=== PATIENT | female | born 1970 | race Caucasian/White ===

== ENCOUNTER 2023-02-23 19:25 | Emergency (ER) | payer MEDICARE, OTHER ==
[~2023-02-23] VITALS: Ht 160 cm; Wt 60.8 kg
[~2023-02-23 19:25] MED LIST: ACET-73 PO; OMEP20CA15 PO
--- NOTE | 2023-02-23 19:45 | NUR ---
Dr. Saha evaluated patient at bedside. MSE in progress.
[2023-02-23] MEDS ORDERED: HYDROCODONE/APAP 10-325 MG TABLET ONE (20:29)
[2023-02-23] MEDS ORDERED: HYDROCODONE/APAP 10-325 MG TABLET PO ONE (20:30)
[2023-02-23] MEDS ORDERED: HYDR-3980 PO (20:59)
[2023-02-23] MEDS ORDERED: CLIN300C12 PO (20:59)
--- NOTE | 2023-02-23 21:21 | NUR ---
Patient discharged to home in stable condition. Written and verbal after care instructions given. Patient verbalizes understanding of instructions. Stressed follow up or return to ER for worsening s/s. Instructed patient not to drive.
--- NOTE | 2023-02-23 21:30 | NUR ---
[facility] 10-325mg 1 tab PO reassessment due at 21:31, unable to reassess due to patient d/c. Prior to discharge, patient stated pain relief 2/10 pain.
[2023-02-23 23:20] VITALS: BP 115/75
== END 2023-02-23 21:21 | disposition home or self-care (01) ==
LOC: ER 19:27
DX: K04.7 Periapical abscess without sinus (principal); R68.84 Jaw pain; K21.9 Gastro-esophageal reflux disease without esophagitis; Z88.0 Allergy status to penicillin; Z88.1 Allergy status to other antibiotic agents; Z88.8 Allergy status to other drugs, medicaments and biological substances; Z91.018 Allergy to other foods; Z79.899 Other long term (current) drug therapy
CPT/HCPCS: A4663

== ENCOUNTER 2023-03-16 12:55 | Emergency (ER) | payer MEDICARE, OTHER ==
[~2023-03-16] VITALS: Ht 160 cm; Wt 60.8 kg
[~2023-03-16 12:55] MED LIST changes: +CLIN300C12 PO; +HYDR-3980 PO
--- NOTE | 2023-03-16 13:01 | NUR ---
Patient is AOx4 and reported, "There is black mold and mice in my room." Patient came to ER c/o generalized aches, myalgias, headaches, subjective fever, chills, nausea, vomiting and diarrhea for about a week. Patient denies chest pains and no shortness of breath.
--- NOTE | 2023-03-16 13:12 | NUR ---
[email or web address], medical screening exam in progress
[2023-03-16] MEDS ORDERED: PROCHLORPERAZINE EDISYLATE 10 MG/2 ML VIAL IV ONE (13:15)
[2023-03-16] MEDS ORDERED: ACETAMINOPHEN ES 500 MG TABLET PO ONE (13:15)
[2023-03-16] MEDS ORDERED: KETOROLAC TROMETHAMINE 15 MG INJ IVP ONE (13:15)
[2023-03-16] MEDS ORDERED: IV NORMAL SALINE 1000 ML BAG IV ONE (13:15)
[2023-03-16] MEDS ORDERED: PROCHLORPERAZINE EDISYLATE 10 MG/2 ML VIAL ONE (13:24)
[2023-03-16] MEDS ORDERED: ACETAMINOPHEN ES 500 MG TABLET ONE (13:24)
[2023-03-16] MEDS ORDERED: KETOROLAC TROMETHAMINE 15 MG INJ ONE (13:24)
[2023-03-16 13:40] LABS: HEMATOCRIT 46.5 % (31.2-41.9); MEAN CORPUSCULAR VOLUME 84.2 fL (75.5-95.3); PLATELET COUNT (AUTO) 238 K/uL (179-408)
[2023-03-16 13:47] LABS: CREATININE 0.9 mg/dL (0.6-1.3); POTASSIUM 3.8 mmol/L (3.5-5.1)
--- NOTE | 2023-03-16 14:26 | NUR ---
IV removed. Catheter intact and site benign. Pressure and 4x4 gauze applied to site. No bleeding noted. Patient discharged to home by Dr Lucas in stable condition with brisk steady gait. Written and verbal after care instructions given to patient and adult son. Patient and family verbalized understanding and compliance of instructions. Stressed follow up with primary doctor or return to ER for worsening s/s.
[2023-03-16 14:32] VITALS: BP 122/81
== END 2023-03-16 14:33 | disposition home or self-care (01) ==
LOC: ER 13:06
DX: R51.9 Headache, unspecified (principal); R11.2 Nausea with vomiting, unspecified; R19.7 Diarrhea, unspecified; M79.10 Myalgia, unspecified site; B34.9 Viral infection, unspecified; R07.89 Other chest pain; K21.9 Gastro-esophageal reflux disease without esophagitis; Z88.0 Allergy status to penicillin; Z88.1 Allergy status to other antibiotic agents; Z88.8 Allergy status to other drugs, medicaments and biological substances; Z91.018 Allergy to other foods; Z79.2 Long term (current) use of antibiotics; Z79.899 Other long term (current) drug therapy; Z20.822 Contact with and (suspected) exposure to COVID-19
CPT/HCPCS: 99284; 96374; 71045; 96361; 96375; 87426; 87804 ×2; 80048; 85025; 36415; J1885; J0780; J7040; A4663; A9150

== ENCOUNTER 2023-07-22 12:54 | Emergency (ER) | payer MEDICARE, OTHER ==
[~2023-07-22] VITALS: Ht 157.5 cm; Wt 60.8 kg
[~2023-07-22 12:54] MED LIST changes: +CYCL5TAB PO; +NAPR-1009 PO
[2023-07-22 13:10] VITALS: O2SAT 97
[2023-07-22] MEDS ORDERED: IBUPROFEN 600 MG TABLET PO ONE (13:30)
[2023-07-22] MEDS ORDERED: predniSONE 20 MG TABLET PO ONE (13:30)
[2023-07-22] MEDS ORDERED: predniSONE 10 MG TABLET ONE (13:35)
[2023-07-22] MEDS ORDERED: IBUPROFEN 600 MG TABLET ONE (13:35)
[2023-07-22] MEDS ORDERED: predniSONE 50 MG TABLET ONE (13:35)
[2023-07-22] MEDS ORDERED: PRED20TA PO (14:15)
[2023-07-22] MEDS ORDERED: LEVO750T46 PO (14:15)
[2023-07-22] MEDS ORDERED: ALBU18HF2 INH (14:15)
[2023-07-22] MEDS ORDERED: BENZ-13 PO (14:15)
[2023-07-22] MEDS ORDERED: IBUP-1955 PO (14:15)
== END 2023-07-22 14:48 | disposition home or self-care (01) ==
LOC: ER 12:54
DX: B34.9 Viral infection, unspecified (principal); R05.9 Cough, unspecified; J02.9 Acute pharyngitis, unspecified; N39.0 Urinary tract infection, site not specified; Z88.0 Allergy status to penicillin; Z88.1 Allergy status to other antibiotic agents; Z88.8 Allergy status to other drugs, medicaments and biological substances; Z91.018 Allergy to other foods; Z79.1 Long term (current) use of non-steroidal anti-inflammatories (NSAID); Z79.2 Long term (current) use of antibiotics; Z79.899 Other long term (current) drug therapy; Z20.822 Contact with and (suspected) exposure to COVID-19
CPT/HCPCS: 99284; 71045; 87426; 87804 ×2; J7512 ×2; A4606; A4663

== ENCOUNTER 2024-07-23 09:58 | Emergency (ER) | payer MEDICARE ==
[~2024-07-23] VITALS: Ht 160 cm; Wt 68.9 kg
[~2024-07-23 09:58] MED LIST changes: +ALBU18HF2 INH; +BENZ-13 PO; +IBUP-1955 PO; +LEVO750T46 PO; +PRED20TA PO
[2024-07-23] MEDS ORDERED: LIDOCAINE 1%-EPI 1:100,000 20 ML VIAL ONE (10:39)
[2024-07-23] MEDS ORDERED: NEOMY/BACITRA/POLYMYXIN B OINT UD PACKET TP ONE ×2 (10:39→10:42)
[2024-07-23] MEDS: NEOMY/BACITRA/POLYMYXIN B OINT UD PACKET TP ONE (10:59)
[2024-07-23] MEDS: LIDOCAINE 1%-EPI 1:100,000 20 ML VIAL IJ ONE (11:00)
[2024-07-23 12:00] VITALS: O2SAT 97
== END 2024-07-23 12:25 | disposition home or self-care (01) ==
LOC: ER 09:58
DX: S01.111A Laceration without foreign body of right eyelid and periocular area, initial encounter (principal); J20.9 Acute bronchitis, unspecified; F32.A Depression, unspecified; R51.9 Headache, unspecified; Z79.52 Long term (current) use of systemic steroids; Z98.890 Other specified postprocedural states; Z79.899 Other long term (current) drug therapy; Z88.0 Allergy status to penicillin; Z88.1 Allergy status to other antibiotic agents; W01.0XXA Fall on same level from slipping, tripping and stumbling without subsequent striking against object, initial encounter
CPT/HCPCS: 99284; 70450; 70486; J3490; A4606; A4663

== ENCOUNTER 2024-07-27 09:11 | Emergency (ER) | payer MEDICARE ==
[~2024-07-27] VITALS: Ht 160 cm; Wt 68.9 kg
[2024-07-27 10:13] VITALS: BP 156/78; O2SAT 99
== END 2024-07-27 10:13 | disposition home or self-care (01) ==
LOC: ER 09:11
DX: S01.111D Laceration without foreign body of right eyelid and periocular area, subsequent encounter (principal); J40 Bronchitis, not specified as acute or chronic; F32.A Depression, unspecified; Z79.52 Long term (current) use of systemic steroids; Z79.899 Other long term (current) drug therapy; Z90.49 Acquired absence of other specified parts of digestive tract; Z88.0 Allergy status to penicillin; Z88.1 Allergy status to other antibiotic agents; X58.XXXD Exposure to other specified factors, subsequent encounter
CPT/HCPCS: A4606; A4663

== ENCOUNTER → 2025-02-08 | Emergency (ER) | payer MEDICARE ==
[~2025-02-08] VITALS: Ht 160 cm; Wt 66.7 kg
[~2025-02-08] MED LIST changes: +KETOROLAC TROMETHAMINE 15 MG INJ ONE; +ONDA4TAB5 PO; +ONDANSETRON 4 MG/2 ML VIAL ONE
[2025-02-08 18:11] LABS: BASOPHILS # (AUTO) 0.1 K/UL (0.0-0.2); BASOPHILS % (AUTO) 0.8 % (0.0-2.0); DIFFERENTIAL COMMENT 1; EOSINOPHILS % (AUTO) 0.5 % (0.0-7.0); HEMATOCRIT 40.1 % (31.2-41.9); HEMOGLOBIN 13.6 g/dL (10.9-14.3); LYMPHOCYTES # (AUTO) 0.6 K/uL (0.8-4.8); LYMPHOCYTES % (AUTO) 6.9 % (20.5-51.5); MEAN CORPUSCULAR HEMOGLOBIN 27.2 uug (24.7-32.8); MEAN CORPUSCULAR HGB CONC 34 g/dL (32.3-35.6); MONOCYTES % (AUTO) 11.3 % (0.0-11.0); NEUTROPHILS # (AUTO) 7.4 K/uL (1.8-8.9); NEUTROPHILS % (AUTO) 80.5 % (38.5-71.5); PLATELET COUNT (AUTO) 236 K/uL (179-408); RED BLOOD CELL COUNT(AUTO) 5.01 MIL/uL (3.63-4.92); RED CELL DISTRIBUTION WIDTH 15.2 % (12.3-17.7); WHITE BLOOD COUNT (AUTO) 9.2 K/uL (3.8-11.8)
[2025-02-08] MEDS: IV NORMAL SALINE 1000 ML BAG IV ONE (18:11)
[2025-02-08] MEDS: ONDANSETRON 4 MG/2 ML VIAL IV ONE (18:11)
[2025-02-08 18:18] LABS: CALCIUM 9.4 mg/dL (8.5-10.1); POTASSIUM 4.2 mmol/L (3.5-5.1)
[2025-02-08 18:23] LABS: ALBUMIN 3.6 g/dL (3.4-5.0); BILIRUBIN,DIRECT 0.2 mg/dL (0.0-0.2); BILIRUBIN,TOTAL 0.8 mg/dL (0.2-1.0)
[2025-02-08] MEDS: KETOROLAC TROMETHAMINE 15 MG INJ IVP ONE (18:45)
[2025-02-08 19:57] VITALS: BP 140/80; TEMP 98.1; O2SAT 97
== END | disposition home or self-care (01) ==
LOC: ER 17:51
DX: K52.9 Noninfective gastroenteritis and colitis, unspecified (principal); J06.9 Acute upper respiratory infection, unspecified; F19.10 Other psychoactive substance abuse, uncomplicated; F41.9 Anxiety disorder, unspecified; Z79.52 Long term (current) use of systemic steroids; Z79.899 Other long term (current) drug therapy; Z88.0 Allergy status to penicillin; Z88.1 Allergy status to other antibiotic agents; Z90.49 Acquired absence of other specified parts of digestive tract; Z20.822 Contact with and (suspected) exposure to COVID-19; F32.A Depression, unspecified; Z86.69 Personal history of other diseases of the nervous system and sense organs; Z87.09 Personal history of other diseases of the respiratory system; Z87.19 Personal history of other diseases of the digestive system
CPT/HCPCS: 99284; 96374; 96361; 96375; 87426; 80076; 80048; 83690; 85025; 36415; J1885; J2405; J7040; A4606; A4663

== ENCOUNTER 2025-05-27 14:02 | Emergency (ER) | payer MEDICARE ==
[~2025-05-27] VITALS: Ht 152.4 cm; Wt 68.0 kg
[~2025-05-27 14:02] MED LIST changes: -ACET-73 PO; -ALBU18HF2 INH; -BENZ-13 PO; +BETH10TA2 PO; -CLIN300C12 PO; -CYCL5TAB PO; -HYDR-3980 PO; -IBUP-1955 PO; +IBUP-2314 PO; -KETOROLAC TROMETHAMINE 15 MG INJ ONE; -LEVO750T46 PO; -NAPR-1009 PO; +NITR100C6 PO; -OMEP20CA15 PO; -ONDA4TAB5 PO; -ONDANSETRON 4 MG/2 ML VIAL ONE; -PRED20TA PO; +SERT-440 PO
[2025-05-27 14:30] VITALS: BP 156/90
[2025-05-27 16:36] LABS: PLATELET COUNT (AUTO) 234 K/uL (179-408); RED BLOOD CELL COUNT(AUTO) 5.31 MIL/uL (3.63-4.92); RED CELL DISTRIBUTION WIDTH 16.0 % (12.3-17.7); WHITE BLOOD COUNT (AUTO) 12.5 K/uL (3.8-11.8)
[2025-05-27 16:45] LABS: CREATININE 0.8 mg/dL (0.6-1.3); SODIUM SERUM 148 mmol/L (136-145); UREA NITROGEN, BLOOD 13 mg/dL (7-18)
[2025-05-27 16:46] LABS: *BILIRUBIN,URIN 1+ (NEGATIVE); *BLOOD, URINE TRACE (NEGATIVE); *CLARITY,URINE CLEAR (CLEAR); *COLOR,URINE YELLOW (YELLOW); *KETONES,URINE TRACE (NEGATIVE); *PROTEIN,URINE NEGATIVE (NEGATIVE); *UROBILINOGEN,URINE 0.2 E.U./dl (NORMAL); LEUKOCYTE ESTERASE ,URINE NEGATIVE (NEGATIVE); NITRITE, URINE NEGATIVE (NEGATIVE); UGLUCOSE NEGATIVE (NEGATIVE)
[2025-05-27 16:51] LABS: ASPARTATE AMINOTRANSFERASE 9 U/L (15-37); TOTAL PROTEIN, SERUM 7.3 g/dL (6.4-8.2)
[2025-05-27 16:59] LABS: SQUAMOUS EPITHELIAL CELL,UR MODERATE /HPF (NONE SEEN)
[2025-05-27 17:00] LABS: CALCIUM OXALATE CRYSTALS,UR MANY /HPF (NONE SEEN)
[2025-05-27] MEDS ORDERED: HYDR12.55 PO (18:34)
[2025-05-27] MEDS ORDERED: NITR100C6 PO (18:34)
[2025-05-27] MEDS ORDERED: LIDOCAINE HCL 1% 20 ML VIAL ONE (18:52)
[2025-05-27 19:09] VITALS: BP 134/82; TEMP 98; O2SAT 96
== END 2025-05-27 19:11 | disposition home or self-care (01) ==
LOC: ER 14:02
DX: N39.0 Urinary tract infection, site not specified (principal); F32.A Depression, unspecified; F41.9 Anxiety disorder, unspecified; F19.10 Other psychoactive substance abuse, uncomplicated; Z79.899 Other long term (current) drug therapy; Z86.018 Personal history of other benign neoplasm; Z88.0 Allergy status to penicillin; Z88.1 Allergy status to other antibiotic agents; Z90.49 Acquired absence of other specified parts of digestive tract; Z90.710 Acquired absence of both cervix and uterus; Z86.69 Personal history of other diseases of the nervous system and sense organs; Z87.09 Personal history of other diseases of the respiratory system; Z87.19 Personal history of other diseases of the digestive system
CPT/HCPCS: 99285; 74176; 71045; 80076; 80048; 81001; 83690; 85025; 85730; 87086; 84484; 36415; 93005; 96372; J0696; J3490; A4606; A4663